=== PATIENT | male | born 1990 | race Caucasian/White ===

== ENCOUNTER → 2019-08-17 10:41 | Outpatient (BNVA) | payer SELFPAY | PROVIDERS: Visit Provider Nurse Practitioner Family | DX: E11.9 Type 2 diabetes mellitus without complications (principal); I10 Essential (primary) hypertension; F41.9 Anxiety disorder, unspecified | CPT/HCPCS: 80053; 80061; 83036; 84443; 85025 ==

== ENCOUNTER → 2020-07-30 08:56 | Outpatient (BNVA) | payer OTHER, SELFPAY | PROVIDERS: Visit Provider Nurse Practitioner Family | DX: E11.9 Type 2 diabetes mellitus without complications (principal); I10 Essential (primary) hypertension; F41.9 Anxiety disorder, unspecified | CPT/HCPCS: 80053; 80061; 83036; 84443; 85025 ==

== ENCOUNTER → 2021-08-24 09:04 | Outpatient (BNVA) | payer OTHER, SELFPAY | PROVIDERS: Visit Provider Nurse Practitioner Family | DX: Z11.3 Encounter for screening for infections with a predominantly sexual mode of transmission (principal); E11.9 Type 2 diabetes mellitus without complications; I10 Essential (primary) hypertension; F41.9 Anxiety disorder, unspecified | CPT/HCPCS: 80053; 80061; 83036; 84443; 85025; 87491; 87591 ==

== ENCOUNTER → 2022-03-18 09:06 | Outpatient (BNVA) | payer SELFPAY | PROVIDERS: PCP Nurse Practitioner Family; Visit Provider Nurse Practitioner Family | DX: E11.9 Type 2 diabetes mellitus without complications (principal); I10 Essential (primary) hypertension; F41.9 Anxiety disorder, unspecified | CPT/HCPCS: 80053; 80061; 83036; 84443; 85025 ==

== ENCOUNTER → 2022-09-23 10:43 | Outpatient (BNVA) | payer SELFPAY | PROVIDERS: PCP Nurse Practitioner Family; Visit Provider Nurse Practitioner Family | DX: E11.9 Type 2 diabetes mellitus without complications (principal) | CPT/HCPCS: 80053; 80061; 83036; 84443; 85025 ==

== ENCOUNTER → 2023-02-07 09:37 | Outpatient (BNVA) | payer SELFPAY | PROVIDERS: PCP Nurse Practitioner Family; Visit Provider Nurse Practitioner Family | DX: E11.9 Type 2 diabetes mellitus without complications (principal) | CPT/HCPCS: 80053; 80061; 83036; 84443; 85025 ==

== ENCOUNTER → 2023-12-09 09:33 | Outpatient (BNVA) | payer OTHER, SELFPAY | PROVIDERS: PCP Nurse Practitioner Family; Visit Provider Nurse Practitioner Family | DX: E11.9 Type 2 diabetes mellitus without complications (principal) | CPT/HCPCS: 80053; 83036; 84443 ==

== ENCOUNTER → 2024-01-10 08:44 | Outpatient (BNVA) | payer OTHER, SELFPAY | PROVIDERS: PCP Nurse Practitioner Family; Visit Provider Nurse Practitioner Family | DX: E11.9 Type 2 diabetes mellitus without complications (principal); E87.5 Hyperkalemia | CPT/HCPCS: 80053 ==

== ENCOUNTER → 2024-03-01 10:38 | Outpatient (BNVA) | payer OTHER, SELFPAY | PROVIDERS: PCP Nurse Practitioner Family; Referring Provider Nurse Practitioner Family; Visit Provider Internal Medicine | DX: E11.9 Type 2 diabetes mellitus without complications (principal) | CPT/HCPCS: 80053; 80061; 82044; 82607; 83036 ==

== ENCOUNTER 2024-06-29 08:53 | Outpatient (CLI) | payer OTHER, SELFPAY ==
[2024-06-29 09:38] LABS: Estmated Average Glucose 180; Hemoglobin A1C 7.9 % (4.0-6.0)
[2024-06-29 09:45] LABS: Alanine Aminotransferase 25 U/L (0-41); Albumin Level 4.8 g/dL (3.5-5.2); Alkaline Phosphatase 109 U/L (40-130); Anion Gap 13.5 (5-19); Aspartate Amino Transferase 17 U/L (0-40); Blood Urea Nitrogen 19 mg/dL (6-20); Calcium 9.5 mg/dL (8.5-10.5); Carbon Dioxide 29 mmol/L (22-29); Chloride 95 mmol/L (98-107); Chol HDL Ratio 5.08 mg/dL (1.0-5.00); Cholesterol 183 mg/dL (0-200); Globulin 2.2 g/dL (1.3-4.6); Glomerular Filtration Rate 157.1 mL/min (90-130); Glucose 152 mg/dL (65-115); HDL Cholesterol 36 mg/dL (60-100); LDL Cholesterol Calculated 134 mg/dL (50-129); LDL HDL Ratio 3.72 RATIO (0.00-3.22); Osmolality Calculated 281 mOsm/kg (285-295); Potassium 4.5 mmol/L (3.5-5.1); Sodium 133 mmol/L (136-145); Total Bilirubin 0.7 mg/dL (0.15-1.2); Triglycerides 65 mg/dL (0-150)
[2024-06-29 09:46] LABS: Creatinine Urine, Random 150 mg/dL (39-259); Microalbum Creatinine Ratio Ur 7 mg/dL (0-20); Microalbumin Random Urine 1 ug/dL (0-20)
[2024-06-29 10:00] LABS: Vitamin B12 444 pg/mL (232-1245)
== END 2024-06-29 08:54 | disposition home or self-care (01) ==
LOC: LAB 08:54
PROVIDERS: PCP Nurse Practitioner Family; Visit Provider Internal Medicine
DX: E11.9 Type 2 diabetes mellitus without complications (principal)
CPT/HCPCS: 80053; 80061; 82044; 82607; 83036

== ENCOUNTER → 2024-09-27 10:11 | Outpatient (BNVA) | payer OTHER, SELFPAY | PROVIDERS: PCP Nurse Practitioner Family; Visit Provider Nurse Practitioner Family | DX: E11.9 Type 2 diabetes mellitus without complications (principal); E78.2 Mixed hyperlipidemia | CPT/HCPCS: 80053; 80061; 82043; 83036 ==

== ENCOUNTER 2025-04-15 08:51 | Outpatient (CLI) | payer OTHER, SELFPAY ==
[2025-04-15 10:37] LABS: Alanine Aminotransferase 17 U/L (0-41); Albumin Level 5.0 g/dL (3.5-5.2); Alkaline Phosphatase 93 U/L (40-130); Anion Gap 15.6 (5-19); Aspartate Amino Transferase 14 U/L (0-40); Blood Urea Nitrogen 17 mg/dL (6-20); Calcium 9.4 mg/dL (8.5-10.5); Carbon Dioxide 30 mmol/L (22-29); Chloride 99 mmol/L (98-107); Cholesterol 175 mg/dL (0-200); Globulin 2.7 g/dL (1.3-4.6); Glucose 146 mg/dL (65-115); HDL Cholesterol 43 mg/dL (60-100); Osmolality Calculated 294 mOsm/kg (285-295); Potassium 4.6 mmol/L (3.5-5.1); Sodium 140 mmol/L (136-145); Total Protein 7.7 g/dL (6.6-8.7); Triglycerides 59 mg/dL (0-150)
[2025-04-15 10:44] LABS: Creatinine Urine, Random 117 mg/dL (39-259); Microalbum Creatinine Ratio Ur 9 mg/dL (0-20)
[2025-04-17 13:54] LABS: Estmated Average Glucose 180; Hemoglobin A1C 7.9 % (4.0-6.0)
== END 2025-04-15 08:52 | disposition home or self-care (01) ==
LOC: LAB 09:02
PROVIDERS: PCP Nurse Practitioner Family; Visit Provider Internal Medicine
DX: E11.9 Type 2 diabetes mellitus without complications (principal)
CPT/HCPCS: 36415; 80053; 80061; 82044; 83036

== ENCOUNTER → 2025-06-24 09:12 | Outpatient (BNVA) | payer OTHER, SELFPAY | PROVIDERS: PCP Nurse Practitioner Family; Visit Provider Nurse Practitioner Family | DX: E11.9 Type 2 diabetes mellitus without complications (principal) | CPT/HCPCS: 80053; 80061; 82043; 83036; 84443; 85025 ==